=== PATIENT | female | born 1940 | race Caucasian/White ===

== ENCOUNTER 2021-02-17 22:54 | Inpatient (IN) | payer MEDICARE, BC ==
[~2021-02-17] VITALS: Ht 154.9 cm; Wt 68.5 kg
[2021-02-17 23:15] VITALS: BP 147/66
--- NOTE | 2021-02-17 23:30 | NUR ---
RN NOTE MRSA SWAB COLLECTED, LAB NOTIFIED
--- NOTE | 2021-02-17 23:45 | NUR ---
RN NOTE MRSA SWAB COLLECTED & WAITING FOR LAB TO PICK IT UP.
--- NOTE | 2021-02-17 23:45 | NUR ---
[facility] GREEN MEAT GRADER NOTE RECEIVED PATIENT FROM [facility]. PATIENT ARRIVED AT UNIT ON 02/17/2021 2305 VIA STRETCHER WITH 2 EMT, PATIENT ADMITTED ON A 5150 HOLD FOR GRAVELY DISABLED, AND DANGER TO OTHERS. THE PATIENT IS INCREASINGLY AGGRESSIVE IN THE LAST 4 MONTHS. THE 5150 WAS REVIEWED AND THE DOCUMENTATION IN THE 5150 HOLD APPEARS TO REFLECT THE PRESENTATION OF THE PATIENT. ON FACE TO FACE ASSESSMENT, THE PATIENT IS NOTED TO BE A & O X 1, CONFUSED, UNPREDICTABLE, HAS BEEN SAYING SHE WANTS TO SEE HER FAMILY, RESTLESS, ANXIOUS, EASILY IRRITABLE, REDIRECTABLE AND COOPERATIVE AT THIS TIME. NEEDS FREQUENT REDIRECTION. HAS NO S/S OR C/O PAIN, NO S/S OF APPARENT DISTRESS, BREATHING IS UNLABORED WITH EQUAL RISE AND FALL OF THE CHEST. SATURATION AT 97% ON ROOM AIR. PATIENT HAS NO NEEDS AT THIS TIME. PATIENT DENIES SUICIDAL AND/OR HOMICIDAL IDEATIONS AT THIS TIME. PATIENT ADVISED OF HER HOLD, PATIENT RIGHTS BOOKLET GIVEN. THE PATIENT IS UNDER THE PSYCHIATRIC CARE OF DR LAGOS AND MEDICAL CARE OF DR GOOD. PATIENT BELONGINGS WERE INVENTORIED AND CHECKED FOR CONTRABAND, PLACED IN LOCKER. PATIENT SKIN ASSESSMENT COMPLETED, NOTED BRUISING ON THE L WRIST/HAND, L THIGH, SOME REDNESS ON THE R LEG. PATIENT IS UNABLE TO PROVIDE MUCH INFORMATION DUE TO CONFUSION/FORGETFULNESS. PATIENT ORIENTATED TO ROOM, FLOOR, AND STAFF WITH ALL QUESTIONS ANSWERED. PATIENT EDUCATED ON THE USE OF THE CALL SIBLEY, SIDE RAILS ARE UP X 2 FOR SAFETY, BED IS LOW AND LOCKED. BED ALARM ON. AND WILL CONTINUE TO MONITOR THIS PATIENT Q15 MINUTES WITH THE HELP OF STAFF TO MAINTAIN SAFETY.
[2021-02-18] VITALS: BP 147/66
[2021-02-18] MEDS ORDERED: MAG HYDROX/AL HYDROX/SIMETH 30 ML UDC PO PRN
[2021-02-18] MEDS ORDERED: MAGNESIUM HYDROXIDE 30 ML UDC PO PRN
[2021-02-18] MEDS ORDERED: TEMAZEPAM 7.5 MG CAPSULE PO PRN
[2021-02-18] MEDS ORDERED: BLOOD SUGAR DIAGNOSTIC 1 EACH STRIP IN ONE
[2021-02-18] MEDS ORDERED: LORAZEPAM 0.5 MG TABLET PO PRN
[2021-02-18] MEDS ORDERED: METO25TA20 PO (01:32)
[2021-02-18] MEDS ORDERED: RISP1TAB97 PO (01:32)
[2021-02-18] MEDS ORDERED: DONE10TA44 PO (01:32)
[2021-02-18] MEDS ORDERED: UMEC1BLS INH (01:32)
[2021-02-18] MEDS ORDERED: PANT40TA49 PO (01:32)
[2021-02-18] MEDS ORDERED: BUDE3CAP8 PO (01:32)
[2021-02-18] MEDS ORDERED: DULO60CA64 PO (01:32)
[2021-02-18] MEDS ORDERED: LISI20TA30 PO (01:32)
[2021-02-18] MEDS ORDERED: AMLO2.5T4 PO (01:32)
[2021-02-18] MEDS ORDERED: MEMA10TA56 PO (01:32)
[2021-02-18] MEDS ORDERED: DULO30CA52 PO (01:32)
[2021-02-18] MEDS ORDERED: ROSU20TA32 PO (01:32)
[2021-02-18] MEDS ORDERED: CHOL2400 PO (01:34)
[2021-02-18] MEDS ORDERED: CHOL400T11 PO (01:36)
[2021-02-18] MEDS ORDERED: LIDOCAINE PATCH TOP (01:38)
--- NOTE | 2021-02-18 03:13 | NUR ---
RN NOTE MARISA GOOD WAS NOTIFIED TO RECONCILE THE MEDICATIONS.
--- NOTE | 2021-02-18 07:07 | NUR ---
RN NOTE CALLED KIM PRADO AT [phone] & INFORMED HER ABOUT PATIENT'S ADMISSION AT [facility].
[2021-02-18 07:36] LABS: ALBUMIN 3.1 g/dL (3.4-5.0); BILIRUBIN,TOTAL 0.4 mg/dL (0.2-1.0); CALCIUM, SERUM 8.4 mg/dL (8.5-10.1); POTASSIUM 3.5 mmol/L (3.5-5.1); TOTAL PROTEIN, SERUM 5.7 g/dL (6.4-8.2)
[2021-02-18 08:00] VITALS: BP 162/76
--- NOTE | 2021-02-18 09:28 | NUR ---
Dr. Motley made aware of the admission.
--- NOTE | 2021-02-18 10:24 | NUR ---
REZA Initial Discharge: Patient currently resides at [address] [place] [address]; ([phone]). Patient would want to return back home upon discharge. REZA will work with the MD and treatment team to coordinate appropriate discharge.
--- NOTE | 2021-02-18 10:25 | NUR ---
REZA Substance Abuse Intervention: REZA provided brief substance abuse intervention for smoking. Patient was provided with a brief substance abuse intervention and referred to [facility] ([phone]), [facility] ([phone]), and [facility] ([phone]).
--- NOTE | 2021-02-18 12:04 | NUR ---
SW Family Contact: SW spoke with patient's daughter Bonny ([phone]) and gathered collateral. Daughter stated that she has found pt a placement at [facility]. SW stated for admissions to contact this SW to coordinate with [place]. Daughter reported Puneet is the DPOA and will send this SW documents.
[2021-02-18] MEDS: RIVASTIGMINE TARTRATE 1.5 MG CAPSULE PO SCH (14:59)
[2021-02-18 16:00] VITALS: BP 157/75
[2021-02-18] MEDS: METOPROLOL TARTRATE 25 MG TABLET PO SCH (16:57)
[2021-02-18] MEDS: MEMANTINE HCL 5 MG TABLET PO SCH (16:58)
[2021-02-18] MEDS: HALOPERIDOL 1 MG TABLET PO SCH (16:58)
--- NOTE | 2021-02-18 19:30 | NUR ---
GPS RN NOTE, RECEIVED PATIENT AWAKE AND IN BED, NO S/S OR COMPLAINTS OF PAIN AT THIS TIME. PATIENT IS DISPLAYING NO S/S OF APPARENT DISTRESS AT THIS TIME. PATIENT BREATHING IS UNLABORED WITH EQUAL RISE AND FALL OF THE CHEST. PATIENT IS ALERT AND ORIENTED X 1-2 ON ROOM AIR WITH A SPO2 98%. PATIENT IS COMPLIANT WITH MEDICATIONS, CONFUSED, FORGETFUL, ANXIOUS AT TIMES, COOPERATIVE AND NEEDS REDIRECTION. PATIENT DENIES SUICIDAL AND HOMICIDAL IDEATIONS AT THIS TIME. PATIENT ASSISTED WITH TURNING AND REPOSITIONING Q2HR AND PRN FOR COMFORT AND CIRCULATION. PATIENT HAS NO NEEDS AT THIS TIME. PATIENT EDUCATED ON THE USE OF THE CALL SIBLEY. PATIENT BED SIDE RAILS UP X 2 FOR SAFETY. PATIENT BED IS LOCKED, LOW, WITH BED ALARM ON. WILL CONTINUE TO MONITOR THIS PATIENT Q15 MINUTES WITH THE HELP OF STAFF TO MAINTAIN SAFETY.
[2021-02-18 19:43] VITALS: BP 157/61
[2021-02-18] MEDS: TRAZODONE 50 MG TABLET PO SCH (21:30)
[2021-02-18] MEDS: ATORVASTATIN 40 MG TABLET PO SCH (21:30)
[2021-02-18] MEDS ORDERED: DONEPEZIL 5 MG TABLET PO SCH (22:00)
[2021-02-19] MEDS: RIVASTIGMINE TARTRATE 1.5 MG CAPSULE PO SCH ×2 (01:05→15:00)
[2021-02-19 08:00] VITALS: BP 153/72
[2021-02-19] MEDS: PANTOPRAZOLE 40 MG TABLET.DR PO SCH (08:22)
[2021-02-19] MEDS: HALOPERIDOL 1 MG TABLET PO SCH ×3 (08:23→16:45)
[2021-02-19] MEDS: DULOXETINE HCL 30 MG CAPSULE.DR PO SCH (08:23)
[2021-02-19] MEDS: LISINOPRIL (20MG) 20 MG TABLET PO SCH (08:23)
[2021-02-19] MEDS: MEMANTINE HCL 5 MG TABLET PO SCH ×2 (08:23→16:45)
[2021-02-19] MEDS: METOPROLOL TARTRATE 25 MG TABLET PO SCH ×2 (08:24→16:43)
[2021-02-19] MEDS: BUDESONIDE 3 MG CAP.SR.24H PO SCH (08:31)
[2021-02-19] MEDS ORDERED: AMLODIPINE BESYLATE 2.5 MG TABLET PO SCH (09:00)
--- NOTE | 2021-02-19 09:10 | NUR ---
SW Family Contact: This SW received a call from patient's daughter Bonny ([phone]) and she gave verbal consent to share some information of pt's well-being at the hospital to patient's social welfare research worker/nurse.
--- NOTE | 2021-02-19 09:13 | NUR ---
REZA Coordination of Care: REZA contacted Bettygayle from [facility] ([phone]) and left a voicemail to introduce self and to coordinate placement, per daughters request.
[2021-02-19] MEDS: CHOLECALCIFEROL (VITAMIN D 3) 400 UNIT TABLET PO SCH (12:24)
--- NOTE | 2021-02-19 13:31 | NUR ---
REZA Coordination of Care: REZA contacted Mati from [facility] ([phone]) who stated that they will evaluate pt on 02/24.
--- NOTE | 2021-02-19 13:32 | NUR ---
REZA Family Contact: REZA contacted patient's daughter Bonny ([phone]) and notified of patient's day of evaluation from [facility] 02/23.
[2021-02-19 16:00] VITALS: BP 118/57
[2021-02-19 19:53] VITALS: BP 143/69
[2021-02-19] MEDS: ATORVASTATIN 40 MG TABLET PO SCH (21:37)
[2021-02-19] MEDS: TRAZODONE 50 MG TABLET PO SCH (21:37)
[2021-02-20] MEDS: RIVASTIGMINE TARTRATE 1.5 MG CAPSULE PO SCH ×2 (01:31→13:29)
[2021-02-20 08:00] VITALS: BP 156/55
[2021-02-20] MEDS: BUDESONIDE 3 MG CAP.SR.24H PO SCH (08:35)
[2021-02-20] MEDS: CHOLECALCIFEROL (VITAMIN D 3) 400 UNIT TABLET PO SCH (08:43)
[2021-02-20] MEDS: HALOPERIDOL 1 MG TABLET PO SCH ×3 (08:43→17:39)
[2021-02-20] MEDS: DULOXETINE HCL 30 MG CAPSULE.DR PO SCH (08:44)
[2021-02-20] MEDS: PANTOPRAZOLE 40 MG TABLET.DR PO SCH (08:44)
[2021-02-20] MEDS: LISINOPRIL (20MG) 20 MG TABLET PO SCH (08:44)
[2021-02-20] MEDS: METOPROLOL TARTRATE 25 MG TABLET PO SCH ×2 (08:45→17:39)
[2021-02-20] MEDS: AMLODIPINE BESYLATE 2.5 MG TABLET PO SCH (08:45)
[2021-02-20] MEDS: ACETAMINOPHEN 325 MG TABLET PO PRN (13:47)
[2021-02-20 16:00] VITALS: BP 128/56
[2021-02-20 20:00] VITALS: BP 115/66
--- NOTE | 2021-02-20 21:43 | NUR ---
RN NOTES: AROUND 1999 PER DAUGHTER REQUEST SHE WANTS HER MOTHER TO TRANSFER IN ANOTHER ROOM DUE TO ROOM MATE INCOMPATIBILITY, RN/CN NOTIFIED AND AGREED FOR TRANSFER. -HER BELONGINGS WAS MOVE FROM ROOM 213A TO 212A.
[2021-02-20] MEDS: TRAZODONE 50 MG TABLET PO SCH (21:52)
[2021-02-20] MEDS: ATORVASTATIN 40 MG TABLET PO SCH (21:52)
--- NOTE | 2021-02-20 22:47 | NUR ---
RN NOTES: SHE VERBALIZED SHE LIKE THE ROOM, ABLE TO SLEEP AND REST.DUE MEDICATION GIVEN, COOPERATIVE, NO SIGN OF AGITATION NOTED, KEPT ON CLOSE WATCH.
[2021-02-21] MEDS: RIVASTIGMINE TARTRATE 1.5 MG CAPSULE PO SCH ×2 (01:35→14:57)
--- NOTE | 2021-02-21 06:29 | NUR ---
RN NOTES: AROUND 0500 ACCOMPANIED BY RN TO GO TO THE BATHROOM AND PEE,COOPERATIVE, NO BM, NEEDS ATTENDED.
[2021-02-21 08:00] VITALS: BP 143/63
[2021-02-21] MEDS: PANTOPRAZOLE 40 MG TABLET.DR PO SCH (08:36)
[2021-02-21] MEDS: DULOXETINE HCL 30 MG CAPSULE.DR PO SCH (08:36)
[2021-02-21] MEDS: CHOLECALCIFEROL (VITAMIN D 3) 400 UNIT TABLET PO SCH (08:36)
[2021-02-21] MEDS: HALOPERIDOL 1 MG TABLET PO SCH ×3 (08:36→17:42)
[2021-02-21] MEDS: METOPROLOL TARTRATE 25 MG TABLET PO SCH ×2 (08:37→17:42)
[2021-02-21] MEDS: LISINOPRIL (20MG) 20 MG TABLET PO SCH (08:38)
[2021-02-21] MEDS: AMLODIPINE BESYLATE 2.5 MG TABLET PO SCH (08:38)
[2021-02-21] MEDS: BUDESONIDE 3 MG CAP.SR.24H PO SCH (08:39)
[2021-02-21] MEDS: ACETAMINOPHEN 325 MG TABLET PO PRN (13:08)
[2021-02-21 16:00] VITALS: BP 131/67
[2021-02-21 19:29] VITALS: BP 101/52
[2021-02-21] MEDS: ATORVASTATIN 40 MG TABLET PO SCH (22:19)
[2021-02-21] MEDS: TRAZODONE 50 MG TABLET PO SCH (22:19)
[2021-02-22] MEDS: RIVASTIGMINE TARTRATE 1.5 MG CAPSULE PO SCH ×2 (02:06→13:15)
--- NOTE | 2021-02-22 06:54 | NUR ---
[facility]PS RN CLOSING NOTES: PATIENT IS LAYING IN BED, AWAKE, A/O X1-2. PATIENT SLEPT 6HRS THIS SHIFT. WEEKLY SKIN ASSESSMENT DONE AND PICTURES TAKEN AND PLACED IN PATIENT CHART, NO NEW SKIN ISSUES NOTED. PATIENT WAS MED COMPLIANT THIS SHIFT. NO S/S OF DISTRESS. RESPIRATION EVEN AND UNLABORED WITH EQUAL RISE AND FALL OF THE CHEST, ON ROOM AIR. ALL PATIENT CARE NEEDS HAVE BEEN MET ANTICIPATED. BED IN LOWEST POSITION AND LOCKED, SIDE RAILS UP X2 FOR SAFETY. WILL CONTINUE TO MONITOR AND AND ENDORSE TO AM SHIFT.
[2021-02-22 08:00] VITALS: BP 153/72
[2021-02-22] MEDS: PANTOPRAZOLE 40 MG TABLET.DR PO SCH (08:19)
[2021-02-22] MEDS: CHOLECALCIFEROL (VITAMIN D 3) 400 UNIT TABLET PO SCH (08:19)
[2021-02-22] MEDS: METOPROLOL TARTRATE 25 MG TABLET PO SCH ×2 (08:21→16:38)
[2021-02-22] MEDS: HALOPERIDOL 1 MG TABLET PO SCH ×3 (08:22→16:38)
[2021-02-22] MEDS: DULOXETINE HCL 30 MG CAPSULE.DR PO SCH (08:23)
[2021-02-22] MEDS: LISINOPRIL (20MG) 20 MG TABLET PO SCH (08:23)
[2021-02-22] MEDS: AMLODIPINE BESYLATE 2.5 MG TABLET PO SCH (08:23)
[2021-02-22] MEDS: BUDESONIDE 3 MG CAP.SR.24H PO SCH (08:27)
[2021-02-22 16:00] VITALS: BP 113/57
[2021-02-22] MEDS: ACETAMINOPHEN 325 MG TABLET PO PRN (18:20)
--- NOTE | 2021-02-22 18:21 | NUR ---
patient medicated with Tylenol 650mg x1 for back pain level 4/10 will continue to monitor for back pain.
[2021-02-22 19:45] VITALS: BP 149/79
[2021-02-22 20:23] VITALS: BP 149/79
[2021-02-22] MEDS: ATORVASTATIN 40 MG TABLET PO SCH (21:08)
[2021-02-22] MEDS: TRAZODONE 50 MG TABLET PO SCH (21:08)
[2021-02-23] MEDS: RIVASTIGMINE TARTRATE 1.5 MG CAPSULE PO SCH ×2 (02:49→14:48)
[2021-02-23 08:00] VITALS: BP 119/50
[2021-02-23] MEDS: CHOLECALCIFEROL (VITAMIN D 3) 400 UNIT TABLET PO SCH (08:21)
[2021-02-23] MEDS: DULOXETINE HCL 30 MG CAPSULE.DR PO SCH (08:21)
[2021-02-23] MEDS: METOPROLOL TARTRATE 25 MG TABLET PO SCH ×3 (08:29→17:36)
[2021-02-23] MEDS: PANTOPRAZOLE 40 MG TABLET.DR PO SCH (08:30)
[2021-02-23] MEDS: LISINOPRIL (20MG) 20 MG TABLET PO SCH ×2 (08:30→09:00)
[2021-02-23] MEDS: HALOPERIDOL 1 MG TABLET PO SCH ×3 (08:30→17:37)
[2021-02-23] MEDS: AMLODIPINE BESYLATE 2.5 MG TABLET PO SCH (08:31)
[2021-02-23] MEDS: BUDESONIDE 3 MG CAP.SR.24H PO SCH (08:34)
--- NOTE | 2021-02-23 09:44 | NUR ---
Court Hearing: Patient's 8780 hearing was today and it was upheld for GD.
[2021-02-23 16:00] VITALS: BP 132/60
[2021-02-23 20:00] VITALS: BP 110/58
[2021-02-23 21:00] VITALS: BP 113/66
[2021-02-23] MEDS: ATORVASTATIN 40 MG TABLET PO SCH (21:28)
[2021-02-23] MEDS: TRAZODONE 50 MG TABLET PO SCH (21:28)
[2021-02-24] MEDS: RIVASTIGMINE TARTRATE 1.5 MG CAPSULE PO SCH ×2 (01:57→13:50)
[2021-02-24 08:00] VITALS: BP 154/80
[2021-02-24] MEDS: AMLODIPINE BESYLATE 2.5 MG TABLET PO SCH (08:54)
[2021-02-24] MEDS: HALOPERIDOL 1 MG TABLET PO SCH ×3 (08:54→16:38)
[2021-02-24] MEDS: LISINOPRIL (20MG) 20 MG TABLET PO SCH (08:55)
[2021-02-24] MEDS: CHOLECALCIFEROL (VITAMIN D 3) 400 UNIT TABLET PO SCH (08:55)
[2021-02-24] MEDS: BUDESONIDE 3 MG CAP.SR.24H PO SCH (08:55)
[2021-02-24] MEDS: DULOXETINE HCL 30 MG CAPSULE.DR PO SCH (08:56)
[2021-02-24] MEDS: PANTOPRAZOLE 40 MG TABLET.DR PO SCH (08:56)
[2021-02-24] MEDS: METOPROLOL TARTRATE 25 MG TABLET PO SCH ×2 (08:56→16:38)
[2021-02-24 16:00] VITALS: BP 134/61
[2021-02-24] MEDS: ACETAMINOPHEN 325 MG TABLET PO PRN (18:12)
[2021-02-24 19:45] VITALS: BP 106/57
[2021-02-24] MEDS: TRAZODONE 50 MG TABLET PO SCH (21:38)
[2021-02-24] MEDS: ATORVASTATIN 40 MG TABLET PO SCH (21:38)
[2021-02-25] MEDS: RIVASTIGMINE TARTRATE 1.5 MG CAPSULE PO SCH ×2 (02:25→13:52)
[2021-02-25 08:00] VITALS: BP 156/68
--- NOTE | 2021-02-25 08:30 | NUR ---
RN-CO: HALDOL DECA 25 MG IM GIVEN, TOLERATED WELL.
[2021-02-25] MEDS: CHOLECALCIFEROL (VITAMIN D 3) 400 UNIT TABLET PO SCH (08:36)
[2021-02-25] MEDS: AMLODIPINE BESYLATE 2.5 MG TABLET PO SCH (08:36)
[2021-02-25] MEDS: PANTOPRAZOLE 40 MG TABLET.DR PO SCH (08:37)
[2021-02-25] MEDS: METOPROLOL TARTRATE 25 MG TABLET PO SCH ×2 (08:37→16:41)
[2021-02-25] MEDS: DULOXETINE HCL 30 MG CAPSULE.DR PO SCH (08:37)
[2021-02-25] MEDS: LISINOPRIL (20MG) 20 MG TABLET PO SCH (08:38)
[2021-02-25] MEDS: BUDESONIDE 3 MG CAP.SR.24H PO SCH (08:38)
[2021-02-25] MEDS: HALOPERIDOL 1 MG TABLET PO SCH ×3 (08:38→16:40)
[2021-02-25] MEDS: ACETAMINOPHEN 325 MG TABLET PO PRN (08:39)
--- NOTE | 2021-02-25 09:47 | NUR ---
[facility]: [facility] and Khang from [facility] evaluated pt on 02/24/2021 and stated that they have accepted pt. SW sent physician report, progress notes, medication list, and chest x-ray at ([phone]).
--- NOTE | 2021-02-25 15:00 | NUR ---
RN-CO: DR ESCOBAR MADE AWARE ABOUT THE DAUGHTER"S REQUEST FOR PAIN MANAGEMENT, MD STATED HE WILL TRY TO REFER HER TO PAIN MNGT DOCTOR. BUT FAMILY CAN BRING HER OUT PATIENT ASWEEL AND ORDERED IBUPROFEN 400 MG PO Q 6HR NEEDED.
[2021-02-25 16:00] VITALS: BP 138/54
[2021-02-25] MEDS: IBUPROFEN 400 MG TABLET PO PRN (18:22)
--- NOTE | 2021-02-25 18:22 | NUR ---
RN-CO: IBUPROFEN 400 MG GIVEN FOR BACK PAIN.
[2021-02-25 20:00] VITALS: BP 133/62
[2021-02-25] MEDS: ATORVASTATIN 40 MG TABLET PO SCH (21:29)
[2021-02-25] MEDS: TRAZODONE 50 MG TABLET PO SCH (21:29)
[2021-02-26] MEDS: RIVASTIGMINE TARTRATE 1.5 MG CAPSULE PO SCH ×2 (01:56→15:52)
[2021-02-26 08:00] VITALS: BP 138/56
[2021-02-26] MEDS: DULOXETINE HCL 30 MG CAPSULE.DR PO SCH (08:44)
[2021-02-26] MEDS: PANTOPRAZOLE 40 MG TABLET.DR PO SCH (08:44)
[2021-02-26] MEDS: CHOLECALCIFEROL (VITAMIN D 3) 400 UNIT TABLET PO SCH (08:44)
[2021-02-26] MEDS: BUDESONIDE 3 MG CAP.SR.24H PO SCH (08:45)
[2021-02-26] MEDS: HALOPERIDOL 1 MG TABLET PO SCH ×3 (08:45→17:53)
[2021-02-26] MEDS: METOPROLOL TARTRATE 25 MG TABLET PO SCH ×2 (08:45→17:54)
[2021-02-26] MEDS: AMLODIPINE BESYLATE 2.5 MG TABLET PO SCH (08:46)
[2021-02-26] MEDS: LISINOPRIL (20MG) 20 MG TABLET PO SCH (08:46)
--- NOTE | 2021-02-26 08:53 | NUR ---
REZA Coordination of Care: Patient will follow up with primary doctor Dr. [facility] ([phone]) [facility] [address], [address] [place] [address] on March 12 at 1PM and will monitor and provide psychotropic medications.
[2021-02-26 15:42] VITALS: BP 151/70
[2021-02-26 20:48] VITALS: BP 149/65
[2021-02-26] MEDS: TRAZODONE 50 MG TABLET PO SCH (21:07)
[2021-02-26] MEDS: ATORVASTATIN 40 MG TABLET PO SCH (21:07)
[2021-02-27] MEDS: RIVASTIGMINE TARTRATE 1.5 MG CAPSULE PO SCH ×2 (02:01→13:03)
[2021-02-27 08:00] VITALS: BP 144/80
[2021-02-27] MEDS: DULOXETINE HCL 30 MG CAPSULE.DR PO SCH (08:09)
[2021-02-27] MEDS: BUDESONIDE 3 MG CAP.SR.24H PO SCH (08:09)
[2021-02-27] MEDS: PANTOPRAZOLE 40 MG TABLET.DR PO SCH (08:10)
[2021-02-27] MEDS: CHOLECALCIFEROL (VITAMIN D 3) 400 UNIT TABLET PO SCH (08:10)
[2021-02-27] MEDS: HALOPERIDOL 1 MG TABLET PO SCH ×3 (08:11→16:22)
[2021-02-27] MEDS: AMLODIPINE BESYLATE 2.5 MG TABLET PO SCH (08:11)
[2021-02-27] MEDS: METOPROLOL TARTRATE 25 MG TABLET PO SCH ×2 (08:12→16:22)
[2021-02-27] MEDS: LISINOPRIL (20MG) 20 MG TABLET PO SCH (08:12)
[2021-02-27] MEDS: IBUPROFEN 400 MG TABLET PO PRN (13:11)
[2021-02-27 16:00] VITALS: BP 108/64
[2021-02-27 19:47] VITALS: BP 123/82
[2021-02-27] MEDS: ATORVASTATIN 40 MG TABLET PO SCH (21:13)
[2021-02-27] MEDS: TRAZODONE 50 MG TABLET PO SCH (21:18)
[2021-02-28] MEDS: RIVASTIGMINE TARTRATE 1.5 MG CAPSULE PO SCH ×2 (06:00→06:03)
--- NOTE | 2021-02-28 06:07 | NUR ---
RN NOTES: PER PT. REQUEST EXELON 1.5 MG ADMIN AT THIS TIME , AT 0200 PT. WANTS TO SLEEP , OFFERED ON TIME BUT PT. REQUEST GIVE ME LATER. Addendum: 02/28/21 at 0630 by LAMAR MILLIGAN RN EXELON 1.5 MG PO MED SCHEDULE @0200 , OFFERD ON SCHEDULE TIME , BUT PT. REQUEST I WANT SLEEP AT THIS TIME ,GIVE ME LATER. PER PT. REQUEST MEDS GIVEN LATER. , CHARGE NURSE DREAD NOTIFIED.
--- NOTE | 2021-02-28 06:08 | NUR ---
RN NOTES: PER PT. REQUEST EXELON 1.5 MG ADMIN AT THIS TIME , AT 0200 PT. WANTS TO SLEEP , OFFERED ON TIME BUT PT. REQUEST GIVE ME LATER AND NOTIFIED CHARGE NURSE .
[2021-02-28 08:00] VITALS: BP 135/69
[2021-02-28] MEDS: PANTOPRAZOLE 40 MG TABLET.DR PO SCH (09:24)
[2021-02-28] MEDS: BUDESONIDE 3 MG CAP.SR.24H PO SCH (09:25)
[2021-02-28] MEDS: DULOXETINE HCL 30 MG CAPSULE.DR PO SCH (09:25)
[2021-02-28] MEDS: HALOPERIDOL 1 MG TABLET PO SCH ×3 (09:25→17:10)
[2021-02-28] MEDS: CHOLECALCIFEROL (VITAMIN D 3) 400 UNIT TABLET PO SCH (09:25)
[2021-02-28] MEDS: LISINOPRIL (20MG) 20 MG TABLET PO SCH (09:26)
[2021-02-28] MEDS: METOPROLOL TARTRATE 25 MG TABLET PO SCH ×2 (09:26→17:12)
[2021-02-28] MEDS: AMLODIPINE BESYLATE 2.5 MG TABLET PO SCH (09:27)
--- NOTE | 2021-02-28 15:01 | NUR ---
GPS/RN EXELON 1.5MG PO GIVEN SCHEDULED FOR 1400. UNABLE TO SCAN CAN RUNNER SCANNED CAN RUNNER DOSE FOR 1400 ALREADY
[2021-02-28 16:00] VITALS: BP 128/56
[2021-02-28 19:54] VITALS: BP 144/60
[2021-02-28] MEDS: TRAZODONE 50 MG TABLET PO SCH (22:01)
[2021-02-28] MEDS: ATORVASTATIN 40 MG TABLET PO SCH (22:01)
[2021-03-01] MEDS: RIVASTIGMINE TARTRATE 1.5 MG CAPSULE PO SCH (02:57)
--- NOTE | 2021-03-01 06:56 | NUR ---
[facility] RN CLOSING NOTES: PATIENT IS CURRENTLY SLEEPING. PATIENT SLEPT 8HRS THIS SHIFT. WEEKLY SKIN ASSESSMENT DONE, PICTURES TAKEN AND PLACED IN PATIENT CHART, NO NEW SKIN ISSUES NOTED. NO S/S OF DISTRESS. RESPIRATION EVEN AND UNLABORED WITH EQUAL RISE AND FALL OF THE CHEST, ON ROOM AIR. ALL PATIENT CARE NEEDS HAVE BEEN MET ANTICIPATED. BED IN LOWEST POSITION AND LOCKED, SIDE RAILS UP X2 FOR SAFETY. WILL CONTINUE TO MONITOR AND ENDORSE TO AM SHIFT.
[2021-03-01 08:00] VITALS: BP 152/90
--- NOTE | 2021-03-01 08:09 | NUR ---
Discharge Note: Patient will be discharged to [facility] located at [address], [place] [address]; ([phone]). Patients daughter Bonny ([phone]) will fruit or nut picker pt at 11AM. Admissions at [facility], [facility] and [facility] stated pt is welcomed today. Patient appears to be alert and oriented x2. Patient denies suicidal or homicidal ideation. Patient denies visual/auditory hallucinations. Patient will follow up with primary doctor Dr. [facility] ([phone]) [facility] [address], [address] [place] [address] on March 12 at 1PM and will monitor and provide psychotropic medications. Presents with euthymic mood and congruent affect.
[2021-03-01] MEDS: CHOLECALCIFEROL (VITAMIN D 3) 400 UNIT TABLET PO SCH (09:13)
[2021-03-01] MEDS: DULOXETINE HCL 30 MG CAPSULE.DR PO SCH (09:13)
[2021-03-01] MEDS: BUDESONIDE 3 MG CAP.SR.24H PO SCH (09:13)
[2021-03-01] MEDS: HALOPERIDOL 1 MG TABLET PO SCH (09:14)
[2021-03-01] MEDS: PANTOPRAZOLE 40 MG TABLET.DR PO SCH (09:14)
[2021-03-01] MEDS: LISINOPRIL (20MG) 20 MG TABLET PO SCH (09:15)
[2021-03-01] MEDS: METOPROLOL TARTRATE 25 MG TABLET PO SCH (09:15)
[2021-03-01 09:16] VITALS: BP 152/90
[2021-03-01] MEDS: AMLODIPINE BESYLATE 2.5 MG TABLET PO SCH (09:16)
--- NOTE | 2021-03-01 11:33 | NUR ---
Patient discharged to [facility] located at [address], [place] [address]; ([phone]). Patients daughter Bonny ([phone]) . Admissions at [place] [facility] and [facility] stated pt is welcomed today. Patient appears to be alert and oriented x2. Patient denies suicidal or homicidal ideation. Patient denies visual/auditory hallucinations. Patient will follow up with primary doctor Dr. [facility] ([phone]) [facility] [address], [address] [place] [address] on March 12 at 1PM and will monitor and provide psychotropic medications. Copy of Exit Care and instructions for after care given. medication prescriptions given. All belongings and valuables returned. pt exit the unit at 1130 am. pt escorted to main lobby via w/c by gps staff.
== END 2021-03-01 11:30 | DRG 885 ==
LOC: GPS 22:54
PROVIDERS: ADMIT Psychiatry & Neurology Psychiatry
DX: F29 Unspecified psychosis not due to a substance or known physiological condition (principal); I11.0 Hypertensive heart disease with heart failure; F23 Brief psychotic disorder; F03.90 Unspecified dementia, unspecified severity, without behavioral disturbance, psychotic disturbance, mood disturbance, and anxiety; I25.10 Atherosclerotic heart disease of native coronary artery without angina pectoris; I35.1 Nonrheumatic aortic (valve) insufficiency; I50.9 Heart failure, unspecified; Z86.73 Personal history of transient ischemic attack (TIA), and cerebral infarction without residual deficits; M85.80 Other specified disorders of bone density and structure, unspecified site; F41.1 Generalized anxiety disorder; Z73.6 Limitation of activities due to disability; F32.A Depression, unspecified
CPT/HCPCS: 36415; 71045-TC; 80053-TC; 80061-TC; 82962-TC; 87081-TC; 97116-TC; 97530-TC